=== PATIENT | female | born 1950 | race American Indian/Alaskan Native ===

== ENCOUNTER 2022-06-21 16:13 | Observation (INO) ==
[2022-06-21] MEDS ORDERED: MORPHINE 2 MG/1 ML SYRINGE IV PRN (21:24)
[2022-06-21] MEDS ORDERED: ONDANSETRON 4 MG/2 ML VIAL IV PRN (21:24)
[2022-06-21] MEDS ORDERED: ACETAMINOPHEN 325 MG TABLET PO PRN (21:24)
[2022-06-21] MEDS ORDERED: POTASSIUM CHLORIDE 20 MEQ TABLET PO PRN ×2 (21:24)
[2022-06-21] MEDS ORDERED: MAGNESIUM SULF RIDER 4 GM/100 ML PREMIX IV PRN (21:24)
[2022-06-21] MEDS ORDERED: MAGNESIUM SULF RIDER 2 GM/50 ML PREMIX IV PRN (21:24)
[2022-06-21] MEDS ORDERED: NITROGLYCERIN SL 0.4 MG TABLET SL PRN (21:28)
[2022-06-21 22:01] LABS: Basophils % 0.5 % (0.0-0.8); Eosinophils # 0.1 10*3/uL (0.0-0.87); Eosinophils % 2.1 % (0.00-10.9); Hematocrit 39.7 VOL% (35.7-47.0); Hemoglobin 13.2 GM/DL (12.0-16.0); Immature Granulocytes % 0.5 %; Immature Granulocytes Absolute 0.03 #; Lymphocytes # 1.9 10*3/uL (1.4-4.0); Lymphocytes % 31.5 % (21.3-54.2); Mean Corpuscular HGB Conc 33.2 GM/DL (32-36); Mean Corpuscular Volume 92.1 FL (87-102); Mean Platelet Volume 11.9 FL (9.6-12.0); Monocytes # 0.5 10*3/uL (0.11-0.8); Monocytes % 8.5 % (1.7-12.7); Neutrophils % 56.9 % (38.7-73.9); Platelet Count 192 T/CUMM (130-400); Red Blood Count 4.31 MC/CUMM (3.8-5.5); Red Cell Distribution Width 12.4 % (9.3-17.3); White Blood Count 6.13 T/CUMM (4-12)
[2022-06-21 22:25] LABS: Albumin 3.1 G/DL (3.4-5.0); Bilirubin,Total 0.9 MG/DL (0.20-1.00); Calcium 8.9 MG/DL (8.5-10.1); Osmolality,Calculated 285.8 MOS/KG (273-304); Potassium 3.8 MMOL/L (3.5-5.1); Total Protein 7.2 G/DL (6.4-8.2)
[2022-06-21] MEDS: ENOXAPARIN 40 MG/0.4 ML SYRINGE SUBCUT SCH (22:53)
[2022-06-22 02:08] LABS: Risk Ratio 2.93; Thyroid Stimulating Hormone 5.66 uIU/ml (0.358-3.74); VLDL Cholesterol 26.4 MG/DL
[2022-06-22 05:55] LABS: PT Patient Result 10.7 SECS (10.1-12.1); Partial Thromboplastin Time 35.3 SECS (23.7-32.9)
[2022-06-22] MEDS: PANTOPRAZOLE 40 MG TABLET PO SCH (12:20)
[2022-06-22] MEDS: ASPIRIN EC 325 MG TABLET PO SCH (12:20)
[2022-06-22] MEDS ORDERED: IBUPROFEN 800 MG TABLET PO ONE (20:28)
[2022-06-22] MEDS: ENOXAPARIN 40 MG/0.4 ML SYRINGE SUBCUT SCH (22:28)
[2022-06-23 08:09] VITALS: BP 129/61
[2022-06-23 08:11] LABS: Calcium 8.7 MG/DL (8.5-10.1); Osmolality,Calculated 277.4 MOS/KG (273-304); Potassium 4.3 MMOL/L (3.5-5.1)
[2022-06-23] MEDS: ASPIRIN EC 325 MG TABLET PO SCH (09:39)
[2022-06-23] MEDS: PANTOPRAZOLE 40 MG TABLET PO SCH (09:40)
== END 2022-06-23 12:10 | disposition home or self-care (01) ==
LOC: N.TELES → SUATTDRO 20:36
PROVIDERS: ADMIT Internal Medicine; ATTEND Internal Medicine